=== PATIENT | male | born 1985 | race Caucasian/White ===

== ENCOUNTER 2019-12-10 11:55 | Emergency (ER) | payer SELFPAY ==
[2019-12-10] MEDS ORDERED: Acetaminophen 325 MG Tab PO ONE (12:22)
--- NOTE | 2019-12-10 12:24 | EDM.PDOC ---
ED HPI GENERAL MEDICAL PROBLEM - General Chief Complaint: Headache Stated Complaint: FEVER/HEADACHE Time Seen by Provider: 12/10/19 12:32 Source of Information: Reports: Patient History Limitations: Reports: No Limitations - History of Present Illness INITIAL COMMENTS - FREE TEXT/NARRATIVE: pt presents with f/o fever, headache, shortness of breath for three days. pt has recently travelled here from [place], [place] for work, travel was 1 week ago, pt reports he has taken aspirin at home for fever and was seen here in clinic yesterday and had a coates screen and it was a send out so he does not have results, he continues to have symptoms so he presented here for further evaluation Head Pain Score (Numeric/FACES): 7 - Related Data Allergies Allergy/AdvReac Type Severity Reaction Status Date / Time No Known Allergies Allergy Verified 12/10/19 12:20 Home Meds: Home Meds . [No Known Home Meds] 12/10/19 [History] ED ROS GENERAL - Review of Systems Review Of Systems: See Below Constitutional: Reports: Fever, Chills, Malaise Respiratory: Reports: Shortness of Breath, Cough Cardiovascular: Denies: Chest Pain, Lightheadedness GI/Abdominal: Denies: Diarrhea, Nausea, Vomiting Musculoskeletal: Denies: Shoulder Pain Neurological: Reports: Headache ED EXAM, GENERAL - Physical Exam Exam: See Below General Appearance: Alert, WD/WN, Mild Distress Ears: Normal External Exam, Normal Canal, Hearing Grossly Normal, Normal TMs Nose: Normal Inspection, Normal Mucosa, No Blood Throat/Mouth: Other (mild phayrngeal erythema) Head: Atraumatic, Normocephalic Neck: Normal Inspection, Supple, Non-Tender, Full Range of Motion Respiratory/Chest: No Respiratory Distress, Lungs Clear, Normal Breath Sounds, No Accessory Muscle Use, Chest Non-Tender Cardiovascular: Normal Peripheral Pulses, Regular Rate, Rhythm, No Edema, No Gallop, No JVD, No Murmur, No Rub GI/Abdominal: Normal Bowel Sounds, Soft, Non-Tender, No Organomegaly, No Distention, No Abnormal Bruit, No Mass Back Exam: Normal Inspection, Full Range of Motion, NT Extremities: Normal Inspection, Normal Range of Motion, Non-Tender, Normal Capillary Refill, No Pedal Edema Neurological: Alert, Oriented Skin Exam: Warm, Dry, Intact Course - Vital Signs Last Recorded V/S: Last Vital Signs Temp 99.1 F 12/10/19 12:31 Pulse 103 H 12/10/19 12:06 Resp 20 12/10/19 12:06 BP 156/95 H 12/10/19 12:06 Pulse Ox 95 12/10/19 12:06 - Orders/Labs/Meds Orders: Active Orders 24 hr Category Date Time Status Chest 1V Frontal [CR] Stat Exams 12/10/19 12:21 Ordered Labs: Laboratory Tests 12/10/19 Range/Units 12:35 SARS Virus RNA (PCR) Positive H (NEGATIVE) Meds: Medications Discontinued Medications Generic Name Dose Route Start Last Admin Trade Name Terrell PRN Reason Stop Dose Admin Acetaminophen 650 mg 12/10/19 12:22 12/10/19 12:31 Tylenol PO 12/10/19 12:23 650 mg NOW ONE Administration - Re-Assessments/Exams Free Text/Narrative Re-Assessment/Exam: 12/10/19 13:49 + coates virus Free Text/Narrative Re-Assessment/Exam: 12/10/19 13:56 CXR --> interp by me L basilar atelectasis o/w nad Free Text/Narrative Re-Assessment/Exam: 12/10/19 13:58 coates virus positive, no changes on CXR, spO2 99% on RA, pt does not meet admission criteria at this time will be discharged to home under quarantine have pt return for any worsening symptoms Departure - Departure Time of Disposition: 13:57 Disposition: Home, Self-Care 01 Condition: Good Clinical Impression: COVID-19 - Discharge Information Referrals: PCP,None [Primary Care Provider] - Forms: ED Department Discharge Additional Instructions: Home, Rest, Adequate fluids, quarantine for 14 days, tylenol for fever or pain, return as needed for any worsening condition Sepsis Event Note (ED) - Evaluation Sepsis Screening Result: No Definite Risk - Focused Exam Vital Signs: Vital Signs Temp Temp Pulse Resp BP Pulse Ox 12/10/19 12:31 99.1 F 12/10/19 12:06 99.1 F 103 H 20 156/95 H 95 - My Orders Last 24 Hours: My Active Orders 12/10/19 12:21 Chest 1V Frontal [CR] Stat - Assessment/Plan Last 24 Hours: My Active Orders 12/10/19 12:21 Chest 1V Frontal [CR] Stat
--- NOTE | 2019-12-10 14:09 | CR ---
Chest: Portable view of the chest was obtained. Comparison: No previous chest imaging. Heart size and mediastinum are normal. Slight area of increased density with left base. Lungs otherwise are clear. Bony structures are unremarkable. Impression: 1. Slight increased density with left base which may represent atelectasis or small area of pneumonia. 2. Portable chest x-ray is otherwise unremarkable. Diagnostic code #3 This report was dictated in MDT
== END 2019-12-10 14:12 | disposition home or self-care (01) ==
LOC: JD.ED 11:55
DX: U07.1 COVID-19 (principal)
CPT/HCPCS: 71045; 87635; 99285; A9270; 99282; U0002